=== PATIENT | male | born 1990 | race Caucasian/White ===

== ENCOUNTER 2020-04-09 14:06 | Emergency (ER) | payer MEDICAID, OTHER ==
[~2020-04-09] VITALS: Ht 170.2 cm; Wt 156.8 kg
[~2020-04-09 14:06] MED LIST: ALBU6.7H9 INH
[2020-04-09] MEDS ORDERED: LORazepam 2 mg/ml vial IV ONE ×2 (14:25)
[2020-04-09] MEDS ORDERED: normal saline 1000ML IV soln IVB ONE (14:25)
[2020-04-09] MEDS ORDERED: propofol 10mg/ml 20ml vial IV ONE (14:25)
[2020-04-09 14:49] LABS: BASOPHILS # (AUTO) 0.1 X10'3 (0-0.2); BASOPHILS % (AUTO) 0.8 % (0-1); EOSINOPHILS # (AUTO) 0.1 X10'3 (0-0.9); EOSINOPHILS % (AUTO) 1.1 % (0-6); HEMOGLOBIN 11.8 g/dl (14.0-17.9); LYMPHOCYTES % (AUTO) 17.1 % (21-51); MEAN CORPUSCULAR HEMOGLOBIN 29.7 PG (27.0-31.0); MEAN CORPUSCULAR HGB CONC 33.6 g/dL (33.0-36.5); MEAN CORPUSCULAR VOLUME 88.2 FL (78-98); MEAN PLATELET VOLUME 7.7 FL (7.4-10.4); MONOCYTES # (AUTO) 0.5 X10'3 (0-0.9); MONOCYTES % (AUTO) 4.6 % (2-12); NEUTROPHILS # (AUTO) 8.9 X10'3 (1.8-7.7); NEUTROPHILS % (AUTO) 76.4 % (42-75); PLATELET COUNT 216 X10'3 (140-440); RED BLOOD COUNT 3.97 X10'6 (4.70-6.10); RED CELL DISTRIBUTION WIDTH 13.6 % (11.5-14.5); WHITE BLOOD COUNT 11.7 X10'3 (4.5-11.0)
[2020-04-09 15:05] LABS: ALANINE AMINOTRANSFERASE 39 U/L (12-78); ALBUMIN 2.9 G/DL (3.4-5.0); ALBUMIN/GLOBULIN RATIO 0.9 (1.1-1.5); ALKALINE PHOSPHATASE 77 IU/L (46-116); ANION GAP 17 (8-16); ASPARTATE AMINO TRANSFERASE 23 U/L (10-37); BILIRUBIN,TOTAL 0.4 MG/DL (0.1-1.0); BLOOD UREA NITROGEN 12 MG/DL (7-18); BUN/CREATININE RATIO 10.7 (5.4-32.0); CALCIUM 7.6 MG/DL (8.5-10.1); CHLORIDE 108 MMOL/L (99-107); CREATININE 1.12 MG/DL (0.60-1.10); ETHANOL < 0.010 GM/DL (0.0-0.010); GLUCOSE 137 MG/DL (70-104); SODIUM 144 MMOL/L (135-145); TOTAL PROTEIN 6.2 G/DL (6.4-8.2); eGFR 78 ML/MIN
[2020-04-09] MEDS ORDERED: LEVE500T PO ×2 (15:43)
[2020-04-09] MEDS ORDERED: POTASSIUM BICARB 20meq eff tab 20 MEQ TABLET.EFF PO ONE (15:50)
[2020-04-09] MEDS ORDERED: morphine 5 MG/ML injection IV ONE (15:50)
[2020-04-09] MEDS ORDERED: HYDROcodone/acetaminophen 10/325mg tab PO ONE (15:50)
[2020-04-09] MEDS ORDERED: ondansetron/PF 4mg/2ml inj IV ONE (15:50)
[2020-04-09] MEDS ORDERED: morphine 10mg/ml inj. IV ONE ×2 (15:52→15:55)
[2020-04-09] MEDS ORDERED: HYDR-3973 PO (15:55)
[2020-04-09 16:00] VITALS: BP 154/82
== END 2020-04-09 16:15 | disposition home or self-care (01) ==
LOC: ER 14:06
DX: S93.05XA Dislocation of left ankle joint, initial encounter (principal); S82.431A Displaced oblique fracture of shaft of right fibula, initial encounter for closed fracture; S82.54XA Nondisplaced fracture of medial malleolus of right tibia, initial encounter for closed fracture; G40.909 Epilepsy, unspecified, not intractable, without status epilepticus; E87.6 Hypokalemia; M25.571 Pain in right ankle and joints of right foot; J45.909 Unspecified asthma, uncomplicated; F12.90 Cannabis use, unspecified, uncomplicated; Z98.890 Other specified postprocedural states; Z86.69 Personal history of other diseases of the nervous system and sense organs; Z79.899 Other long term (current) drug therapy; W19.XXXA Unspecified fall, initial encounter; Y93.89 Activity, other specified; Y92.89 Other specified places as the place of occurrence of the external cause; Y99.8 Other external cause status
CPT/HCPCS: 27842; 36415; 71045; 73560; 73590; 73610; 80053; 80320; 85025; 94799; 96361; 96374; 96375; 99152; 99285; J2060; J2270; J2405; J7030